=== PATIENT | female | born 1940 | race African-American/Black ===

== ENCOUNTER 2018-02-09 08:15 | Inpatient (IN) | payer MEDICARE, BC ==
[~2018-02-09] VITALS: Ht 162.6 cm; Wt 55.8 kg
[~2018-02-09 08:15] MED LIST: ALEN70TA46 PO; AMLO2.5T45 PO; DONE5TAB33 PO; LOSA25TA12 PO; MEMA1CAP PO; QUET25TA PO; ROSU10TA PO; SERT20OR PO
[2018-02-09 09:20] LABS: CHLORIDE 117 mEq/L (98-107)
[2018-02-09 09:21] LABS: INR 1.2; PROTHROMBIN TIME 12.4 sec (9.1-11.1)
[2018-02-09 09:22] LABS: BASOPHILS % 0.9 % (0.0-2.0); EOSINOPHILS % 0.8 % (0.0-5.0); HEMATOCRIT. 28.4 % (36.0-48.0); LYMPHOCYTES % 18.4 % (20.0-50.0); MEAN CORPUSCULAR HEMOGLOBIN 29.5 pg (28.0-32.0); MEAN CORPUSCULAR VOLUME 92.7 fL (81.0-99.0); MEAN PLATELET VOLUME 8.7 fl (7.4-10.4); MONOCYTES % 5.8 % (2.0-8.0); NEUTROPHILS % 74.1 % (40.0-76.0); PLATELET 207 x1000/uL (130-400); RED BLOOD CELL COUNT 3.06 mill/uL (4.2-5.4); RED CELL DISTRIBUTION WIDTH 16.4 % (11.6-14.6)
[2018-02-09 09:26] LABS: ETHANOL BLOOD < 10 mg/dL
[2018-02-09 10:31] LABS: CLARITY URINE CLOUDY (CLEAR); COLOR URINE YELLOW (YELLOW); KETONES URINE NEGATIVE (NEGATIVE); LEUKOCYTE ESTERASE URINE NEGATIVE (NEGATIVE); NITRITE URINE NEGATIVE (NEGATIVE); OCCULT BLOOD URINE 2+ (NEGATIVE); PROTEIN URINE TRACE (NEGATIVE); UROBILINOGEN URINE 0.2 E.U./dL (0.2-1.0)
[2018-02-09 10:52] LABS: *COCAINE SCREEN URINE NEGATIVE (NEGATIVE)
[2018-02-09 10:53] LABS: *AMPHETAMINES SCREEN URINE NEGATIVE (NEGATIVE); *BARBITURATES SCREEN URINE NEGATIVE (NEGATIVE); *BENZODIAZEPINES SCREEN URINE NEGATIVE (NEGATIVE); CANNABINOID URINE SCREEN NEGATIVE (NEGATIVE); METHADONE URINE SCREEN NEGATIVE (NEGATIVE); OPIATES URINE SCREEN NEGATIVE (NEGATIVE); PHENCYCLIDINE URINE SCREEN NEGATIVE (NEGATIVE)
[2018-02-09] MEDS ORDERED: MAGNESIUM/ALUMINUM HYDROXIDE/SIMETHICONE 30ML UDC PO PRN (14:00)
[2018-02-09] MEDS ORDERED: ACETAMINOPHEN 325MG TABLET PO PRN (14:00)
[2018-02-09] MEDS ORDERED: ONDANSETRON HCL 4MG/2ML INJ IV PRN (14:00)
[2018-02-09] MEDS ORDERED: GUAIFENESIN 200MG/10ML SUGAR FREE UDC PO PRN (14:00)
[2018-02-09] MEDS ORDERED: DOCUSATE SODIUM 100MG CAPSULE PO PRN (14:00)
[2018-02-09] MEDS ORDERED: CLONIDINE 0.1MG TABLET PO PRN (14:00)
[2018-02-09] MEDS ORDERED: ASPIRIN 325MG TABLET PO NR (14:30)
[2018-02-09 16:20] VITALS: BP 147/81
[2018-02-09 16:30] VITALS: BP 147/81
[2018-02-09 18:00] VITALS: BP 134/86
[2018-02-09] MEDS: DEXT 5%/0.45% NACL 1000ML 1,000 ML IV SCH (18:21)
[2018-02-09 20:00] VITALS: BP 134/71
[2018-02-10] VITALS: BP 122/65
[2018-02-10 04:00] VITALS: BP 137/81
[2018-02-10] MEDS: DEXT 5%/0.45% NACL 1000ML 1,000 ML IV SCH ×2 (06:31→19:10)
[2018-02-10 07:54] LABS: BASOPHILS % 1.2 % (0.0-2.0); EOSINOPHILS % 2.2 % (0.0-5.0); HEMATOCRIT. 26.1 % (36.0-48.0); HEMOGLOBIN. 8.4 g/dL (12.0-16.0); LYMPHOCYTES % 25.8 % (20.0-50.0); MEAN CORPUSCULAR HEMOGLOBIN 29.6 pg (28.0-32.0); MEAN CORPUSCULAR VOLUME 92.1 fL (81.0-99.0); MEAN PLATELET VOLUME 9.1 fl (7.4-10.4); MONOCYTES % 9.6 % (2.0-8.0); NEUTROPHILS % 61.2 % (40.0-76.0); PLATELET 174 x1000/uL (130-400); RED BLOOD CELL COUNT 2.83 mill/uL (4.2-5.4); RED CELL DISTRIBUTION WIDTH 16.6 % (11.6-14.6)
[2018-02-10 08:00] VITALS: BP 130/71
[2018-02-10 08:12] LABS: CHLORIDE 120 mEq/L (98-107)
[2018-02-10] MEDS: AMLODIPINE 10MG TABLET PO SCH (08:58)
[2018-02-10] MEDS: DONEPEZIL HCL 10MG TABLET PO SCH (11:12)
[2018-02-10] MEDS: MEMANTINE HCL 5MG TABLET PO SCH (11:12)
[2018-02-10 12:00] VITALS: BP 124/70
[2018-02-10 16:00] VITALS: BP 145/75
[2018-02-10 20:00] VITALS: BP 156/81
[2018-02-10] MEDS: LORAZEPAM 2MG/ML CPJ IV PRN (21:12)
[2018-02-11] VITALS: BP 139/77
[2018-02-11 04:00] VITALS: BP 123/82
[2018-02-11] MEDS ORDERED: HALOPERIDOL LACTATE 5MG/ML VIAL IM PRN (08:15)
[2018-02-11] MEDS: DEXT 5%/0.45% NACL 1000ML 1,000 ML IV SCH ×2 (08:16→11:17)
[2018-02-11] MEDS: MEMANTINE HCL 5MG TABLET PO SCH (09:10)
[2018-02-11] MEDS: DONEPEZIL HCL 10MG TABLET PO SCH (09:11)
[2018-02-11] MEDS: AMLODIPINE 10MG TABLET PO SCH (09:11)
[2018-02-11] MEDS: QUETIAPINE FUMARATE 25MG TABLET PO SCH (14:59)
[2018-02-11 16:00] VITALS: BP 117/59
[2018-02-11 20:00] VITALS: BP 135/77
[2018-02-12] VITALS: BP 135/70
[2018-02-12] MEDS: LORAZEPAM 2MG/ML CPJ IV PRN (00:23)
[2018-02-12 04:00] VITALS: BP 129/64
[2018-02-12] MEDS: MEMANTINE HCL 5MG TABLET PO SCH (08:57)
[2018-02-12] MEDS: QUETIAPINE FUMARATE 25MG TABLET PO SCH (08:57)
[2018-02-12] MEDS: AMLODIPINE 10MG TABLET PO SCH (08:57)
[2018-02-12] MEDS: DONEPEZIL HCL 10MG TABLET PO SCH (08:57)
[2018-02-12] MEDS: DEXT 5%/0.45% NACL 1000ML 1,000 ML IV SCH (11:10)
[2018-02-12 14:11] VITALS: BP 146/81
[2018-02-12 16:00] VITALS: BP_SYST 146; BP_SYST 181; BP_DIAS 68; BP_DIAS 86
== END 2018-02-12 17:25 | DRG 683 ==
LOC: ER 08:15 → EDBEDREQSVC 11:46 → 6EST 12:19 → EDBEDREQ 12:21 → EDBEDREQTM 12:22 → EDBEDREQ 12:22 → CANRESERV 13:36 → ENRESERV 13:36 → 6EST 02-10 01:01
PROVIDERS: ADMIT Hospitalist; ATTEND Hospitalist
DX: N17.9 Acute kidney failure, unspecified (principal); E87.1 Hypo-osmolality and hyponatremia; I13.11 Hypertensive heart and chronic kidney disease without heart failure, with stage 5 chronic kidney disease, or end stage renal disease; E87.2 Acidosis; E87.0 Hyperosmolality and hypernatremia; R62.7 Adult failure to thrive; E78.5 Hyperlipidemia, unspecified; D64.9 Anemia, unspecified; M81.0 Age-related osteoporosis without current pathological fracture; I25.10 Atherosclerotic heart disease of native coronary artery without angina pectoris; F03.90 Unspecified dementia, unspecified severity, without behavioral disturbance, psychotic disturbance, mood disturbance, and anxiety; F32.9 Major depressive disorder, single episode, unspecified; Z51.5 Encounter for palliative care; N18.6 End stage renal disease; W06.XXXA Fall from bed, initial encounter; R29.6 Repeated falls; Z66 Do not resuscitate; Z90.710 Acquired absence of both cervix and uterus; Z79.83 Long term (current) use of bisphosphonates; Y93.89 Activity, other specified; Y92.89 Other specified places as the place of occurrence of the external cause; Y99.8 Other external cause status
CPT/HCPCS: 36415; 71045; 80305; 80307; 80329; 84484; 93005; 97162; 99285; G0482; J2060